=== PATIENT | female | born 1980 | race Caucasian/White ===

== ENCOUNTER 2021-05-13 16:02 | Emergency (ER) | payer MEDICARE, OTHER ==
[~2021-05-13] VITALS: Ht 162.6 cm; Wt 50.3 kg
--- NOTE | 2021-05-13 16:58 | NUR ---
TO ER BED 16, BIBSELF C/O MULTIPLE ABSCESS AROUND HER VAGINA,WANTS TO BE TREATED PRIOR TO GOING TO REHAB, AAOX3, BREATHING EVEN AND NON LABORED
[2021-05-13] MEDS ORDERED: CEPH500T PO (17:46)
[2021-05-13] MEDS ORDERED: NALO4SPR NS (17:46)
[2021-05-13] MEDS ORDERED: SULF1TAB47 PO (17:46)
[2021-05-13] MEDS ORDERED: CEPHALEXIN MONOHYDRATE 500 MG CAPSULE PO ONE (17:55)
[2021-05-13] MEDS ORDERED: SULFAMETH/TRIMETH 800/160 MG 1 UDTAB TABLET ONE (17:55)
[2021-05-13] MEDS ORDERED: PENICILLIN G BENZATHINE 2.4 MMU/4 ML ML IM ONE (17:56)
[2021-05-13] MEDS: PENICILLIN G BENZATHINE 2.4 MMU/4 ML ML IM ONE (17:58)
[2021-05-13] MEDS: SULFAMETH/TRIMETH 800/160 MG 1 UDTAB TABLET PO ONE (17:58)
[2021-05-13] MEDS: CEPHALEXIN MONOHYDRATE 500 MG CAPSULE PO ONE (17:59)
--- NOTE | 2021-05-13 18:05 | NUR ---
Patient discharged to home in stable condition. Written and verbal after care instructions given. Patient verbalizes understanding of instruction.
[2021-05-13 18:07] VITALS: BP 132/73
== END 2021-05-13 18:07 | disposition home or self-care (01) ==
LOC: ER 16:10
DX: L73.9 Follicular disorder, unspecified (principal); Z20.2 Contact with and (suspected) exposure to infections with a predominantly sexual mode of transmission; Z88.1 Allergy status to other antibiotic agents; Z79.899 Other long term (current) drug therapy
CPT/HCPCS: 84703; 86592; 86695; 86696; 87491; 87591; 87806; 96372; 99283; J0558; 36415